=== PATIENT | female | born 2000 | race Caucasian/White ===

== ENCOUNTER 2023-04-26 17:00 | Outpatient (RCR) | payer OTHER, SELFPAY | END 2023-06-04 14:31 | disposition home or self-care (01) | LOC: PT 17:00 | PROVIDERS: Visit Provider Obstetrics & Gynecology | DX: M54.32 Sciatica, left side (principal) | CPT/HCPCS: 97110; 97140; 97163 ==

== ENCOUNTER 2023-06-09 20:42 | Emergency (ER) | payer OTHER, SELFPAY ==
[2023-06-09 20:44] VITALS: BP 137/74; PULSE 89; RESP 19; TEMP 36.9; O2SAT 99; BMI 20.7
--- NOTE | 2023-06-09 21:00 | XR_ITS ---
PROCEDURE INFORMATION: Exam: XR Chest Exam date and time: 06/09/2023 9:38 PM Age: 23 years old Clinical indication: Dyspnea TECHNIQUE: Imaging protocol: Radiologic exam of the chest. Views: 1 view. COMPARISON: No relevant prior studies available. FINDINGS: Lungs: Unremarkable. No consolidation. Pleural spaces: Unremarkable. No pleural effusion. No pneumothorax. Heart/Mediastinum: Unremarkable. No cardiomegaly. Bones/joints: Unremarkable. IMPRESSION: No acute findings.
--- NOTE | 2023-06-09 21:03 | HMH.EDGENADL ---
Discharge Plan Disposition Patient Disposition: Home, Self-Care Prescriptions Prescriptions: No Action ibuprofen 600 mg tablet 600 mg PO Q8H oxycodone 5 mg tablet 5 mg PO Q6H PRN (Reason: Pain, Moderate) enoxaparin 40 mg/0.4 mL syringe 40 mg SQ DIRECTED Referrals Follow up/Referrals: Kwasi Santillan MD [Staff Physician] - See instructions Jeison Pepe MD [Primary Care Provider] - See instructions Activity Restrictions/Add. Instructions Additional Instructions/Restrictions: There is no evidence of a pulmonary embolism or any other acute cardiopulmonary emergency however your BNP was significantly elevated and for that reason please follow-up closely with cardiology to have an outpatient echo done to rule out cardiomyopathy. The bedside echo that I performed did not show any evidence of any systolic dysfunction but she need a more comprehensive evaluation of the structure and function of your heart to effectively rule this out. Please return with any worsening shortness of breath or other concerns. Clinical Impressions Clinical Impression: Chest pain Discharge ED Provider: Leti Kowalski General Adult HPI General Chief complaint: Upper Respiratory Infection Stated complaint: cough, OLIVAS, body aches Time Seen by Provider: 06/09/23 20:50 Mode of Arrival: Wheelchair Source of Information: Patient Limitations: No Limitations Description of Symptoms (Recalled from ER Triage Doc. by RN): Patient had section 06/07/23 and was discharged from the hospital this afternoon. Patient reports that she began having a cough on her way home and general malaise that has progressively gotten worse. Patient reports being on lovenox throughout her and currently for sluggish flow . Denies fevers at home. History of Present Illness HPI narrative: Patient is a 23-year-old G3, P3 2 days with a history of preeclampsia presenting to the emergency department with chest discomfort and cough. States that she was feeling fine upon discharge and developed a sudden cough and some discomfort in her chest. She is chronically on Lovenox for the last 2 years for sluggish flow of her lower extremity was never officially diagnosed with a DVT or pulmonary embolism but remained on Lovenox. She stopped Lovenox for 3 days for her but really assumed this prior to being discharged from the hospital. She denies any significant headaches any visual disturbances she does not have any significant shortness of breath she has had no bleeding complications since her surgery. She denies any lower extremity asymmetric swelling no hemoptysis no fevers or chills. She states she is most concerned about her preeclampsia in the past. Related Data Home Medications Medication Instructions Recorded Confirmed enoxaparin 40 mg/0.4 mL 40 mg SQ DIRECTED 06/09/23 06/09/23 subcutaneous syringe ibuprofen 600 mg tablet 600 mg PO Q8H 06/09/23 06/09/23 oxycodone 5 mg tablet 5 mg PO Q6H PRN Pain, Moderate 06/09/23 06/09/23 Allergies Allergy/AdvReac Type Severity Reaction Status Date / Time Penicillins Allergy Intermediate Rash Verified [facility]09[facility]23 21[facility] Disclaimer: The information contained in this section may have been updated after the patient was seen, as this information can be updated by other users. Surgical History (Updated 06/09/23 @ 20:55 by Senait Cuevas RN) Previous section Social History Smoking Status: Never smoker alcohol intake: never current occupational status: other Travel in the last 8 weeks: None ROS Obtained: Yes All systems reviewed & no additional complaints except as documented Physical Exam General General appearance: alert Respiratory Respiratory exam: Present normal lung sounds bilaterally; Absent respiratory distress Cardiovascular Cardiovascular exam: Present tachycardia Abdominal Exam Abdominal exam: Present soft; Absent diste
--- NOTE | 2023-06-09 21:10 | ECG_ITS ---
APPROVED REPORT Exam: Resting ECG HR:82 bpm ECG Measurements Heart Rate 82 AXES DE 149 P 59 QRSd 89 QRS 60 QT 341 T 46 QTc 380 Conclusion SINUS RHYTHM LOW QRS VOLTAGE IN PRECORDIAL LEADS Incomplete RBBB BORDERLINE ECG UNCONFIRMED REPORT Electronically signed by : Jeison Pepe MD 06/10/2023 07:33:34
[2023-06-09 21:25] LABS: Coronavirus 19, PCR Not Detected (NotDetected); Influenza A, PCR Not Detected (NotDetected); Influenza B, PCR Not Detected (NotDetected)
[2023-06-09 21:34] LABS: Alanine Aminotransferase 16 U/L (12-78); Albumin/Globulin Ratio 0.9 (1.1-1.8); Alkaline Phosphatase 169 U/L (38-126); Anion Gap 7.9 mEq/L (5-15); Aspartate Amino Transferase 30 U/L (14-36); Bilirubin,Total 0.3 mg/dl (0.2-1.3); Blood Urea Nitrogen 10 mg/dl (7-17); Calcium 8.7 mg/dl (8.4-10.2); Carbon Dioxide 25 mmol/L (22.0-30.0); Chloride 110 mmol/L (98-107); Creatinine Clearance Estimated 122 mL/min (50-200); Estimated Glomerular Filt Rate 124 ml/min (>60); GFR (African American) 150 ML/MIN (>60); Globulin 3.4 g/dL (1.3-3.2); Glucose 89 mg/dl (74-100); Potassium 3.9 mmoL/L (3.5-5.1); Sodium 139 mmol/L (136-145); Total Protein,Serum 6.4 g/dl (6.3-8.2)
[2023-06-09 21:35] LABS: Microscopic, Urine URINE MICROSCOPIC (MICROSCOPIC)
[2023-06-09 21:37] LABS: Basophils # 0.1 K/mm3 (0-0.2); Basophils % 0.4 % (0.1-2.0); Eosinophils # 0.2 K/mm3 (0.0-0.4); Eosinophils % 1.4 % (0.1-12.0); Hematocrit 36.7 % (37.0-47.0); Hemoglobin 11.6 g/dL (12.2-16.2); Lymphocytes # 2.5 K/mm3 (0.7-4.5); Lymphocytes % 14.8 % (10-50); Mean Corpuscular HGB Conc 31.6 g/dL (31.8-35.4); Mean Corpuscular Hemoglobin 28.5 pg (27.0-31.2); Mean Corpuscular Volume 89.9 fl (81-99); Monocytes # 0.7 K/mm3 (0.1-1.0); Neutrophils # 13.4 K/mm3 (1.8-7.8); Neutrophils % 79.5 % (37.0-80.0); Platelet Count 331 K/mm3 (142-424); Red Blood Count 4.08 M/mm3 (4.20-5.40); Red Cell Distribution Width 15.8 % (11.5-17.5); White Blood Count 16.9 K/mm3 (4.8-10.8)
[2023-06-09 21:37] LABS: Appearance,Urine CLEAR (Clear); Bilirubin,Urine Negative (Negative); Blood, Urine TRACE-I (Negative); Color,Urine YELLOW (Yellow); Glucose,Urine (UA) Negative (Negative); Ketones,Urine Negative (Negative); Leukocyte Esterase,Urine Negative (Negative); Nitrate,Urine Negative (Negative); PH,Urine 6.5 (5.0-8.5); Protein,Urine Negative (Negative); Specific Gravity, Urine 1.015 (1.005-1.030); Urobilinogen,Urine 0.2 EU/dl (0.2)
[2023-06-09 21:43] LABS: MANUAL DIFFERENTIAL MANUAL DIFFERENTIAL (MANUAL DIFF)
--- NOTE | 2023-06-09 21:45 | CT_ITS ---
PROCEDURE INFORMATION: Exam: CTA Chest With Contrast Exam date and time: 06/09/2023 10:05 PM Age: 23 years old Clinical indication: Dyspnea; Additional info: Cp, post , dimer elevated TECHNIQUE: Imaging protocol: Computed tomographic angiography of the chest with contrast. Exam focused on the arteries. 3D rendering (Not supervised by radiologist): MIP and/or 3D reconstructed images were created by the technologist. Radiation optimization: All CT scans at this facility use at least one of these dose optimization techniques: automated exposure control; mA and/or kV adjustment per patient size (includes targeted exams where dose is matched to clinical indication); or iterative reconstruction. Contrast material: ISOVUE; Contrast volume: 70 ml; Contrast route: INTRAVENOUS (IV); REPORTING DATA: Count of CT and Cardiac NM exams in prior 12 months: This patient has received 0 known CTs and 0 known cardiac nuclear medicine studies in the 12 months prior to the current study. COMPARISON: CR XR CHEST PORTABLE 06/09/2023 9:38 PM FINDINGS: Pulmonary arteries: The main pulmonary artery is normal in caliber. No pulmonary embolism. Aorta: Unremarkable. No aortic aneurysm. No aortic dissection. Lungs: Unremarkable. No consolidation. No masses. Pleural spaces: Unremarkable. No pneumothorax. No pleural effusion. Heart: Unremarkable. No cardiomegaly. No pericardial effusion. Lymph nodes: Unremarkable. No enlarged lymph nodes. Intraperitoneal space: Trace pneumoperitoneum seen along the anterior liver, correlate with history recent surgery such as delivery. Bones/joints: Unremarkable. No acute fracture. Soft tissues: Unremarkable. IMPRESSION: 1. The main pulmonary artery is normal in caliber. No pulmonary embolism. 2. Trace pneumoperitoneum seen along the anterior liver, correlate with history recent surgery such as delivery.
[2023-06-09 21:47] LABS: NT Pro Brain Natriuretic Pep. 1090 pg/mL (0-125)
[2023-06-09 21:48] LABS: Troponin I < 0.01 ng/ml (0.00-0.034)
[2023-06-09 21:56] LABS: Eosinophils % 1 % (0-3); Lymphocytes % 15 % (10-50); Monocytes % 3 % (2-9); Neutrophils % 80 % (42-76); Platelet Estimate Normal; RBC Morphology Normal; Total Cells Counted 100
[2023-06-09 21:58] LABS: RBC,Urine Occasional #/hpf (0-3); Squamous Epithelial Cell,Urine Occasional #/hpf (0-5)
--- NOTE | 2023-06-09 22:15 | PC.NURSE ---
Provider at bedside with ultrasound.
[2023-06-09 22:40] VITALS: BP 122/74; PULSE 83; RESP 18; TEMP 36.7; O2SAT 98
== END 2023-06-09 22:41 | disposition home or self-care (01) ==
PROVIDERS: Emergency Provider Student in an Organized Health Care Education/Training Program; PCP Internal Medicine Adolescent Medicine
DX: O90.89 Other complications of the puerperium, not elsewhere classified (principal); R07.89 Other chest pain; I45.19 Other right bundle-branch block; R79.89 Other specified abnormal findings of blood chemistry; R05.9 Cough, unspecified
CPT/HCPCS: 71045; 71275; 80053; 81001; 83880; 84484; 85007; 85025; 85378; 87636; 93005; 96361; 96374; 99285; J0131; Q9967

== ENCOUNTER 2023-12-06 08:52 | Emergency (ER) | payer OTHER, SELFPAY ==
[2023-12-06 09:07] VITALS: BP 117/73; PULSE 144; RESP 18; TEMP 36.9; O2SAT 96; BMI 17.5
--- NOTE | 2023-12-06 09:13 | ED_ITS ---
Discharge Plan Disposition Patient Disposition: Home, Self-Care Prescriptions Prescriptions: New ondansetron 4 mg tablet,disintegrating 4 mg PO Q8H PRN (Reason: nausea and vomiting) 4 Days Qty: 12 0RF No Action ibuprofen 600 mg tablet 600 mg PO Q8H oxycodone 5 mg tablet 5 mg PO Q6H PRN (Reason: Pain, Moderate) enoxaparin 40 mg/0.4 mL syringe 40 mg SQ DIRECTED Referrals Follow up/Referrals: Provider,Referral, MD [Primary Care Provider] - See instructions Activity Restrictions/Add. Instructions Additional Instructions/Restrictions: At this time it was felt you are safe to be discharged home. If new or worsening symptoms please do not hesitate to return the emergency department. If symptoms persist please follow-up with your family doctor as you are able. Please take medication as prescribed. Clinical Impressions Clinical Impression: Influenza A, Vomiting Discharge ED Provider: Maulik Marshall General Adult HPI General Chief complaint: Nausea/Vomiting/Diarrhea Stated complaint: vomiting, body aches, fever Time Seen by Provider: 12/06/23 09:00 History of Present Illness HPI narrative: Patient is a 23-year-old female with no pertinent past medical history presents emergency department for evaluation of symptoms related to influenza A. Patient was diagnosed with influenza A on Sunday. Since then she has had vomiting, body aches, back pain. Due to limited ability to tolerate p.o. she presents here for continued evaluation. No other acute complaints at this time. Related Data Home Medications Medication Instructions Recorded Confirmed enoxaparin 40 mg/0.4 mL 40 mg SQ DIRECTED 06/09/23 06/09/23 subcutaneous syringe ibuprofen 600 mg tablet 600 mg PO Q8H 06/09/23 06/09/23 oxycodone 5 mg tablet 5 mg PO Q6H PRN Pain, Moderate 06/09/23 06/09/23 Previous Rx's Medication Instructions Recorded ondansetron 4 mg disintegrating 4 mg PO Q8H PRN nausea and 12/06/23 tablet vomiting 4 days #12 tabs Allergies Allergy/AdvReac Type Severity Reaction Status Date / Time Penicillins Allergy Intermediate Rash Verified 12/06/23 09:17 [facility] Disclaimer: The information contained in this section may have been updated after the patient was seen, as this information can be updated by other users. Surgical History (Updated 06/09/23 @ 20:55 by Senait Cuevas RN) Previous section Social History (Updated 06/09/23 @ 22:35 by Leti Kowalski MD) Smoking Status: Never smoker alcohol intake: never current occupational status: other Travel in the last 8 weeks: None ROS Obtained: Yes Systems reviewed as appropriate & no additional complaints except as documented Physical Exam General General appearance: alert and in no apparent distress Head Head exam: atraumatic and normocephalic Eye Eye exam: Present PERRL and EOMI ENT ENT exam: Present mucous membranes moist Neck Neck exam: Present normal inspection Chest Chest inspection: Present normal inspection and symmetric chest wall rise Respiratory Respiratory exam: Present normal lung sounds bilaterally; Absent respiratory distress Cardiovascular Cardiovascular exam: Present normal rhythm and tachycardia Abdominal Exam Abdominal exam: Present soft and tenderness (Epigastric) Extremities Exam Extremities exam: Present normal inspection Neurological Exam Neurological exam: Present alert Psychiatric Psychiatric exam: Present normal affect Skin Skin exam: Present warm and dry Medical Decision Making Eddie Inquiry Pt receiving controlled substance: No Vital Signs: 12/06/23 09:07 12/06/23 09:34 Temperature 98.5 F Temperature Source Oral Pulse Rate 112 H Pulse Rate [Left Radial] 144 H Respiratory Rate 18 Blood Pressure [Right Arm] 117/73 Blood Pressure Mean [Right Arm] 87 Blood Pressure Source [Right Arm] Automatic Cuff Blood Pressure Position [Right Arm] Sitting 02 Sat by Pulse Oximetry 96 Oxygen Delivery Method Room Air Lab Data Lab Results 12/06/23 09:18: WBC 8.4, RBC 4.55, Hgb 13.7, Hct 42.3, MCV 92.9, MCH 30.1, MCHC 32.4, RDW 12.1, Plt Count 322, MPV 7.9, Neut % (Auto) 85.2 H, Lymph % (Auto) 7.7 L, [place] % (Auto) 4.2, Eos % (Auto) 1.2, Baso % (Auto) 1.7, Neut # (Auto) 7.2, L ymph # (Auto) 0.6 L, [place] # (Auto) 0.4, Eos # (Auto) 0.1, Baso # (Auto) 0.1, Sodium 139, Potassium 3.6, Chloride 107, Carbon Dioxide 26, Anion Gap 9.6, BUN 13, Creatinine 0.60, Estimated Creat Clear 100, Estimated GFR 124, Est GFR ( Amer) 150, Glucose 104 H, Calcium 8.7, Total Bilirubin 1.6 H, AST 35, ALT 47, Alkaline Phosphatase 78, Total Protein 6.9, Albumin 3.9, Globulin 3.0, Albumin/Globulin Ratio 1.3, Lipase 47, Serum HCG, Qual Negative 12/06/23 09:18 12/06/23 09:18 Orders (Tests/Meds): ED MEDICATIONS Generic Name Dose Route Start Last Admin Trade Name Freq PRN Reason Stop Dose Admin Lactated Ringer's 1,000 mls @ 999 mls/hr 12/06/23 09:12 12/06/23 09:24 Lactated Ringer's 1000 Ml Bag IV 12/06/23 10:12 999 mls/hr .Q1H1M ONE Administration Discontinued Medications Generic Name Dose Route Start Last Admin Trade Name Freq PRN Reason Stop Dose Admin Acetaminophen 1,000 mg 12/06/23 09:20 12/06/23 09:24 Acetaminophen 500mg Tab PO 12/06/23 09:21 1,000 mg ONCE ONE Administration Ketorolac Tromethamine 30 mg 12/06/23 09:20 12/06/23 09:24 Ketorolac 30mg/Ml Vial IV 12/06/23 09:21 30 mg ONCE ONE Administration Ondansetron HCl 4 mg 12/06/23 09:12 12/06/23 09:25 Ondansetron 4mg/2ml Vial IV 12/06/23 09:13 4 mg ONCE ONE Administration ORDERS Category Date Time Status CBC w/Auto Diff [Complete Blood Count Auto Diff] Stat Lab 12/06/23 09:18 Results CMP [Comprehensive Metabolic Panel] Stat Lab 12/06/23 09:18 Completed HCG Qualitative, Serum Stat Lab 12/06/23 09:18 Completed Lipase Stat Lab 12/06/23 09:18 Completed EKG Request [ECG Request] Stat Y 12/06/23 09:27 Ordered ECG Data Tracing #1: Independently interpreted by me, rate is 112, rhythm is regular, axis normal, no ST elevation in anatomical contiguous leads, QTc 391. Medical Decision Narrative: In summary patient is a 23-year-old female past medical history described above presents emergency department for evaluation of myalgias, vomiting in the setting of influenza A. Patient is hemodynamically stable nontoxic-appearing upon arrival, tachycardic. I suspect that tachycardia secondary to viremia however hypovolemia in the setting of vomiting with RADHA cannot be ruled out. Workup will be conducted with hematologic labs. Patient does have some epigastric tenderness, no right upper quadrant rebound or guarding. Workup with imaging was considered but will be deferred. Initial inventions include Zofran, crystalloid bolus. Workup reviewed by me, hematologic labs are nonactionable, hCG negative, no critical electrolyte abnormalities, lipase normal. Per repeat evaluation patient underwent p.o. trial was successful, resolving tachycardia. Given this patient is appropriate for discharge at this time will be discharged with a course of Zofran and was given return precautions. Critical Care Critical Care Time Critical Care Time: No
[2023-12-06] MEDS: KETOROLAC 30MG/ML VIAL 30 MG IV (09:24)
[2023-12-06] MEDS: LACTATED RINGERS 1000ML 1,000 ML 999 ML IV (09:24)
[2023-12-06] MEDS: ACETAMINOPHEN 500MG TAB 1000 MG PO (09:24)
[2023-12-06] MEDS: ONDANSETRON 4MG/2ML VIAL 4 MG IV (09:25)
[2023-12-06 09:30] LABS: Basophils # 0.1 K/mm3 (0-0.2); Basophils % 1.7 % (0.1-2.0); Eosinophils # 0.1 K/mm3 (0.0-0.4); Eosinophils % 1.2 % (0.1-12.0); Hematocrit 42.3 % (37.0-47.0); Hemoglobin 13.7 g/dL (12.2-16.2); Lymphocytes # 0.6 K/mm3 (0.7-4.5); Lymphocytes % 7.7 % (10-50); Mean Corpuscular HGB Conc 32.4 g/dL (31.8-35.4); Mean Corpuscular Hemoglobin 30.1 pg (27.0-31.2); Mean Corpuscular Volume 92.9 fl (81-99); Mean Platelet Volume 7.9 fl (7.4-10.4); Monocytes # 0.4 K/mm3 (0.1-1.0); Monocytes % 4.2 % (1.7-9.3); Neutrophils # 7.2 K/mm3 (1.8-7.8); Neutrophils % 85.2 % (37.0-80.0); Platelet Count 322 K/mm3 (142-424); Red Blood Count 4.55 M/mm3 (4.20-5.40); Red Cell Distribution Width 12.1 % (11.5-17.5); White Blood Count 8.4 K/mm3 (4.8-10.8)
[2023-12-06 09:31] LABS: MANUAL DIFFERENTIAL MANUAL DIFFERENTIAL (MANUAL DIFF)
--- NOTE | 2023-12-06 09:31 | ECG_ITS ---
APPROVED REPORT Exam: Resting ECG HR:112 bpm ECG Measurements Heart Rate 112 AXES VA 128 P 64 QRSd 85 QRS 72 QT 325 T 76 QTc 391 Conclusion SINUS TACHYCARDIA ABNORMAL RHYTHM ECG Electronically signed by : DAVID MOSER, 12/06/2023 15:14:17
[2023-12-06 09:32] LABS: Chloride 107 mmol/L (98-107); Potassium 3.6 mmoL/L (3.5-5.1); Sodium 139 mmol/L (136-145)
[2023-12-06 09:34] VITALS: PULSE 112
[2023-12-06 09:34] LABS: Blood Urea Nitrogen 13 mg/dl (7-17); Creatinine Clearance Estimated 100 mL/min (50-200); Estimated Glomerular Filt Rate 124 ml/min (>60); GFR (African American) 150 ML/MIN (>60)
[2023-12-06 09:35] LABS: Alanine Aminotransferase 47 U/L (12-78); Albumin Level 3.9 g/dl (3.5-5.0); Albumin/Globulin Ratio 1.3 (1.1-1.8); Alkaline Phosphatase 78 U/L (38-126); Anion Gap 9.6 mEq/L (5-15); Aspartate Amino Transferase 35 U/L (14-36); Bilirubin,Total 1.6 mg/dl (0.2-1.3); Calcium 8.7 mg/dl (8.4-10.2); Carbon Dioxide 26 mmol/L (22.0-30.0); Glucose 104 mg/dl (74-100); Lipase 47 U/L (23-300); Total Protein,Serum 6.9 g/dl (6.3-8.2)
[2023-12-06 09:42] LABS: HCG Qualitative, Serum Negative (Negative)
[2023-12-06 10:19] VITALS: BP 97/53; PULSE 94; RESP 16; TEMP 36.8; O2SAT 98
[2023-12-06 10:46] LABS: Lymphocytes % 10 % (10-50); Monocytes % 5 % (2-9); Neutrophils % 79 % (42-76); Total Cells Counted 100
[2023-12-06 10:47] LABS: Platelet Estimate Normal; RBC Morphology Normal
== END 2023-12-06 10:21 | disposition home or self-care (01) ==
PROVIDERS: Emergency Provider Emergency Medicine
DX: J10.1 Influenza due to other identified influenza virus with other respiratory manifestations (principal); R00.0 Tachycardia, unspecified; R11.0 Nausea
CPT/HCPCS: 80053; 83690; 84703; 85007; 85025; 93005; 96361; 96374; 96375; 99284; J2405

== ENCOUNTER 2024-01-01 10:58 | Outpatient (CLI) | payer OTHER, SELFPAY ==
[2024-01-01 11:29] LABS: Basophils # 0.1 K/mm3 (0-0.2); Basophils % 1.3 % (0.1-2.0); Eosinophils # 0.1 K/mm3 (0.0-0.4); Eosinophils % 1.8 % (0.1-12.0); Hematocrit 40.4 % (37.0-47.0); Hemoglobin 12.9 g/dL (12.2-16.2); Lymphocytes # 2.7 K/mm3 (0.7-4.5); Lymphocytes % 42.1 % (10-50); Mean Corpuscular HGB Conc 31.8 g/dL (31.8-35.4); Mean Corpuscular Hemoglobin 29.7 pg (27.0-31.2); Mean Corpuscular Volume 93.4 fl (81-99); Mean Platelet Volume 8.3 fl (7.4-10.4); Monocytes # 0.3 K/mm3 (0.1-1.0); Monocytes % 4.3 % (1.7-9.3); Neutrophils # 3.2 K/mm3 (1.8-7.8); Neutrophils % 50.5 % (37.0-80.0); Platelet Count 359 K/mm3 (142-424); Red Blood Count 4.33 M/mm3 (4.20-5.40); Red Cell Distribution Width 12.4 % (11.5-17.5); White Blood Count 6.3 K/mm3 (4.8-10.8)
[2024-01-01 12:30] LABS: Alanine Aminotransferase 26 U/L (12-78); Albumin Level 4.2 g/dl (3.5-5.0); Alkaline Phosphatase 66 U/L (38-126); Anion Gap 9.4 mEq/L (5-15); Aspartate Amino Transferase 30 U/L (14-36); Bilirubin,Indirect 0.9 mg/dL (0.0-0.9); Bilirubin,Total 0.9 mg/dl (0.2-1.3); Bilirubin,Unconjugated 0.9 mg/dL (0.0-1.1); Blood Urea Nitrogen 11 mg/dl (7-17); Calcium 9.3 mg/dl (8.4-10.2); Carbon Dioxide 27 mmol/L (22.0-30.0); Chloride 108 mmol/L (98-107); Chol/HDL Ratio 2.9 (1-3.5); Cholesterol 197 mg/dl (140-200); Estimated Glomerular Filt Rate 124 ml/min (>60); GFR (African American) 150 ML/MIN (>60); Glucose 86 mg/dl (74-100); HDL Cholesterol 67 mg/dl (40-60); Potassium 4.4 mmoL/L (3.5-5.1); Sodium 140 mmol/L (136-145); Total Protein,Serum 6.8 g/dl (6.3-8.2); Triglycerides 86 mg/dl (30-150); VLDL Cholesterol 17 mg/dL (0-40)
[2024-01-01 12:41] LABS: Direct LDL Cholesterol 100.38 mg/dL (100-129)
[2024-01-01 13:04] LABS: Free Thyroxine Index 1.4 ug/dL (5.93-13.13); T4 (Thyroxine) 4.1 ug/dl (5.53-11.0); Triiodothryronine (T3) Uptake 33 % (23.5-40.5)
[2024-01-01 13:18] LABS: Thyroid Stimulating Hormone 0.58 uIU/mL (0.465-4.68)
== END 2024-01-01 23:59 | disposition home or self-care (01) ==
LOC: LAB 10:59
PROVIDERS: PCP Nurse Practitioner Family; Visit Provider Physician Assistant
DX: R07.9 Chest pain, unspecified (principal); R00.0 Tachycardia, unspecified; R00.2 Palpitations; Z87.891 Personal history of nicotine dependence
CPT/HCPCS: 36415; 80048; 80061; 80076; 84436; 84443; 84479; 85025; 93270

== ENCOUNTER 2024-01-24 09:11 | Outpatient (CLI) | payer OTHER, SELFPAY ==
--- NOTE | 2024-01-24 09:18 | US_ITS ---
FINAL REPORT TECHNIQUE: Ultrasound images of the abdomen were obtained. CLINICAL HISTORY: EPIGASTRIC PAIN gallbladder appears within normal limits COMPARISON: None FINDINGS: ABDOMINAL ULTRASOUND COMPLETE: The liver is normal in size and echogenicity without focal abnormality. There is a small amount of sludge in the dependent portion of the gallbladder. The common duct is normal. The right kidney measures 7.9 cm in length and is normal in echogenicity without hydronephrosis. The left kidney measures 9.7 cm in length and is normal in echogenicity without hydronephrosis. The spleen is unremarkable. The pancreas is obscured by overlying bowel gas. The visualized portions of the aorta and the IVC are normal. The vena cava is unremarkable. There is no evidence of hernia. IMPRESSION: Small amount of sludge in the gallbladder. No evidence of hernia. Reviewed, Interpreted and Dictated by Thee Bush MD Transcribed by Lashell Hernandez Authenticated and [facility]
== END 2024-01-24 23:59 | disposition home or self-care (01) ==
LOC: RAD 09:12
PROVIDERS: PCP Nurse Practitioner; Visit Provider Nurse Practitioner
DX: R10.13 Epigastric pain (principal)
CPT/HCPCS: 76700

== ENCOUNTER 2024-02-08 13:53 | Outpatient (CLI) | payer OTHER, SELFPAY ==
--- NOTE | 2024-02-08 13:57 | US_ITS ---
FINAL REPORT CLINICAL HISTORY: NODULE ON NECK FINDINGS: Limited sonographic images of the back of the right neck were obtained. There is a 13 mm ovoid, hypoechoic nodule at the area of interest in the posterior neck, may represent a borderline lymph node or other soft tissue nodule. IMPRESSION: Hypoechoic nodule at the area of interest, may represent borderline lymph node or other soft tissue nodule. Reviewed, Interpreted and Dictated by Baldo López III, MD Transcribed by Dian Jennings Authenticated and [facility]
== END 2024-02-08 23:59 | disposition home or self-care (01) ==
LOC: RAD 13:54
PROVIDERS: PCP Nurse Practitioner; Visit Provider Nurse Practitioner
DX: R22.1 Localized swelling, mass and lump, neck (principal); Z87.891 Personal history of nicotine dependence
CPT/HCPCS: 76536

== ENCOUNTER 2024-05-12 08:54 | Outpatient (CLI) | payer OTHER, SELFPAY ==
--- NOTE | 2024-05-12 09:21 | CT_ITS ---
APPROVED REPORT Community Health Director: CLINICAL INDICATION Chest Pain TECHNIQUE Image Acquisition: A 128 slice MDCT scanner ([employer] Talenda View) was used for data acquisition. A noncontrast coronary calcium scan was performed. A CT attenuation threshold of 130 Hounsfield units (HU) was used for the detection of calcium in contiguous voxels of 1 sq mm in area to be counted as individual lesions. Bolus tracking in the ascending aorta with a threshold of 180 HU was performed. Immediately afterwards, ECG synchronized cardiac CT was then performed from the cardiac base to apex using retrospective gating with ECG tube current modulation. A total of 85 mL of Isovue 370 mg/mL contrast medium was administered at 5 mL/sec followed by a saline flush using a biphasic injection protocol. A tube voltage of 120 KVp was used. The average heart rate at the time of acquisition was 66 bpm and regular. The patient received no medications prior to the CT scan. Image Reconstruction Transaxial images were reconstructed at 0.67 mm slide thickness. Data was reviewed interactively on an advanced workstation capable of 2 and 3-dimensional displays in all conventional reconstruction formats, including multiplanar reformations, maximum intensity projections, curved multiplanar reformations, and volume rendered reconstructions. When applicable, selected routine images describing the relevant coronary anatomy and pathology were saved and sent to PACS. Complications None Technical Quality Overall image quality was good. Coronary artery opacification was adequate. Total DLP (Dose-Length Product) is 1157.7 mGy-cm. The reported value represents the total of one or more individual components during the CT acquisition of this date and at this time, and as such, the same value may appear in more than one CT report depending on the interpreting/reporting physicians. COMPARISON None FINDINGS CT Coronary Calcium Scoring LMA (Left Main Artery) = 0 LAD (Left Anterior Descending) = 0 LCX (Left Coronary Circumflex) = 0 RCA (Right Coronary Artery) = 0 Total Calcium Score = 0 using the AJ-130 method. The interpretation of the calcium heart score is based on the following continuum*: 0 = no calcified plaque detected (risk of coronary artery disease is very low ??? less than 5%) 1-10 = calcium detected in extremely minimal levels (risk of coronary diseases is still low ??? less than 10%) 11-100 = mild levels of plaque detected with certainty (mild or minimal narrowing of heart arteries is likely) 101-400 = definite,at least moderate levels of plaque detected (relatively high risk of a heart attack within 3-5 years) >401-999 = extensive levels of plaque detected (high risk of heart attack, high levels of vascular disease are present, high likelihood of at least one significant coronary narrowing) *The calcium heart score quantifies the burden of coronary calcification/plaque in the coronary arteries. The calcium heart score is not able to evaluate the presence or burden of non-calcified (i.e. soft) plaque. There is no identifiable calcification in the aortic valve, mitral annulus or mitral valve, pericardium, or myocardium. Coronary CT Angiography The coronary arterial system is right dominant. Quantitative Stenosis Grading: Left Main (LM): The left main originates normally from the left sinus of Valsalva. The LM trifurcates into the left anterior descending artery, ramus intermedius, and left circumflex artery. The LM is patent with no evidence of atherosclerosis. Left Anterior Descending (LAD) and Diagonal Branches: The LAD gives off 2 diagonal branch(es). The LAD and its branches are patent with no evidence of atherosclerosis. There is no evidence of LAD-myocardial bridge. Ramus-intermedius (RI): The RI is patent. Left Circumflex (LCX) and Obtuse Marginals (OM): The LCX gives off 1 Obtuse Marginal (OM) branch(es). The LCX and its branches are patent with no evidence of atherosclerosis. Right Coronary Artery (RCA): The RCA originates normally from the right sinus of Valsalva. The RCA gives off a posterior descending artery (PDA) and posterolateral (PL) branches. The RCA and its branches are patent with no evidence of atherosclerosis. Non-Coronary Cardiac Findings: Analysis of the left ventricular (LV) structure and function was performed after 3-D reconstruction of the LV from axial images, with user-corrected automatic contouring for assessment of LV volumes and user-defined reconstruction from oblique planes for measurement of 3-D cardiac structure and function. -The left ventricle systolic function is _ -There is no left atrial appendage filling defect. Two right pulmonary veins and two left pulmonary veins drain normally into the left atrium. -No pericardial thickening or calcification. -Central and branch pulmonary arteries in the [id number] are unremarkable. -Thoracic aorta within the visualized thoracic aortic-branches in the [id number] is unremarkable. Extracardiac Structures No significant extra-cardiac findings. Note, however, that this study is focused on the cardiac findings. IMPRESSION -No coronary calcification with an Agatston score = 0 using the AJ-130 method. -No evidence of significant flow-limiting atherosclerosis of the coronary arteries. -No evidence of coronary anomalies or myocardial bridges. -CAD-RADS 0. Management recommendations per ACC/AHA guidelines*, as clinically appropriate. *Recommendations: CAD RADS 0: Reassurance. Consider non-atherosclerotic causes of chest pain. CAD RADS 1: Consider non-atherosclerotic causes of chest pain. Consider preventive therapy and risk factor modification. CAD RADS 2: Consider non-atherosclerotic causes of chest pain. Consider preventive therapy and risk factor modification, particularly for patients with nonobstructive plaque in multiple segments. CAD RADS 3: Consider further functional testing. Consider symptom-guided anti-ischemic and preventive pharmacotherapy as well as risk factor modification per published guideline statements. CAD RADS 4A: Consider further functional testing or invasive coronary angiography with revascularization per published guideline statements. Consider symptom-guided anti-ischemic and preventive pharmacotherapy as well as risk factor modification per published guideline statements. CAD RADS 4B: Invasive coronary angiography recommended with revascularization per published guideline statements. Consider symptom-guided anti-ischemic and preventive pharmacotherapy as well as risk factor modification per published guideline statements. CAD RADS 5: Consider invasive angiography and/or viability assessment with revascularization per published guideline statements. Consider symptom-guided anti-ischemic and preventive pharmacotherapy as well as risk factor modification per published guideline statements. CRITICAL RESULT None COMMUNICATION Per this written report The coronary and cardiac findings of this CCTA were reviewed, reported, and signed by Jovani Aly MD (Link Trainer Maintenance Worker) Conclusion Electronically signed by : Leisa Aly MD 05/13/2024 12:07:18
[2024-05-12 09:29] VITALS: BMI 16.0
[2024-05-12 09:34] VITALS: BP 110/60; PULSE 57; RESP 18; TEMP 36.5; O2SAT 100
[2024-05-12 09:59] LABS: Chloride 107 mmol/L (98-107); Potassium 3.8 mmoL/L (3.5-5.1); Sodium 138 mmol/L (136-145)
[2024-05-12 10:02] LABS: Anion Gap 6.8 mEq/L (5-15); Blood Urea Nitrogen 6 mg/dl (7-17); Calcium 8.4 mg/dl (8.4-10.2); Carbon Dioxide 28 mmol/L (22.0-30.0); Creatinine Clearance Estimated 78 mL/min (50-200); Estimated Glomerular Filt Rate 103 ml/min (>60); GFR (African American) 124 ML/MIN (>60); Glucose 82 mg/dl (74-100)
[2024-05-12 10:07] LABS: Urine Pregnancy, HCG Qual. Negative (Negative)
[2024-05-12 10:20] VITALS: BP 107/71; PULSE 59; RESP 18; O2SAT 100
[2024-05-12 10:23] VITALS: BP 109/64; PULSE 58; RESP 16; O2SAT 100
[2024-05-12 10:26] VITALS: BP 88/44; PULSE 51; RESP 16; O2SAT 100
[2024-05-12 10:29] VITALS: BP 84/46; PULSE 62; RESP 18; O2SAT 100
[2024-05-12] MEDS: 0.9 % SODIUM CHLORIDE 50 ML VIAL IV (10:37)
[2024-05-12] MEDS: SODIUM CHLORIDE 0.9% 10ML SYR (RAD ONLY) 10 ML IV (10:37)
[2024-05-12] MEDS: IOPAMIDOL-370 (76%);100ML BOTTLE 85 ML IV (10:37)
[2024-05-12 10:40] VITALS: BP 120/61; PULSE 67; RESP 16; O2SAT 100
== END 2024-05-12 10:54 | disposition home or self-care (01) ==
PROVIDERS: PCP Nurse Practitioner; Visit Provider Physician Assistant
DX: R06.00 Dyspnea, unspecified (principal); R07.9 Chest pain, unspecified; R00.0 Tachycardia, unspecified
CPT/HCPCS: 75574; 80048; 81025; Q9967

== ENCOUNTER 2024-09-14 16:03 | Emergency (ER) | payer OTHER, SELFPAY ==
[2024-09-14 16:04] VITALS: BP 106/51; PULSE 98; RESP 16; TEMP 37; O2SAT 100; BMI 16.2
--- NOTE | 2024-09-14 16:05 | ED_ITS ---
<Statement entered by Nellie Malone DO - 09/14/24 18:42> I was consulted by the BEAR, and we discussed the complexity of the problems being addressed. I approved the treatment and management plan for this patient's care in the emergency department, thus performing a substantive portion of the medical decision making. Nellie Malone DO Discharge Plan Disposition Patient Disposition: Home, Self-Care Condition: Good Prescriptions Prescriptions: New ondansetron 4 mg tablet,disintegrating 4 mg PO Q6H PRN (Reason: nausea and vomiting) Qty: 10 0RF No Action propranolol 40 mg tablet 40 mg PO BID Qty: 60 3RF ergocalciferol (vitamin D2) [Vitamin D2] 1,250 mcg (50,000 unit) capsule 1,250 mcg PO DAILY Patient Comments: TAKE ONE CAPSULE BY MOUTH ONCE WEEKLY Referrals Follow up/Referrals: Jennifer Hoskins APRN [Primary Care Provider] - See instructions Activity Restrictions/Add. Instructions Additional Instructions/Restrictions: Reintroduce food with the bananas rice applesauce toast diet once you are able to tolerate that you may advance as tolerated. I have sent nausea medicine into your pharmacy. Follow-up with your PCP if your symptoms persist worsen or change or return to the ER as needed. Clinical Impressions Clinical Impression: Nausea & vomiting Instructions Patient Instructions: DI for Diarrhea and Traveler's Diarrhea -- Adult, DI for Diarrhea and Traveler's Diarrhea -- Child, DI for Nausea -- Adult, DI for Nausea -- Child Print Language Print Language: Moldovan Discharge ED Provider: Nellie Malone General Adult HPI General Chief complaint: Nausea/Vomiting/Diarrhea Stated complaint: vomiting, unable to eat, back pain Time Seen by Provider: 09/14/24 16:05 History of Present Illness HPI narrative: Patient presents for evaluation of nausea and vomiting. Patient states that she and her son have had 3 days of nausea vomiting and he has not had diarrhea but she has. She states that they have been unable to tolerate any oral intake for 3 days. She states neither he nor she has urinated today. She denies any fever chills chest pain shortness of breath hemoptysis hematochezia melena hematemesis hematuria. She denies any abdominal pain. Related Data Home Medications ?Medication ?Instructions ?Recorded ?Confirmed ergocalciferol (vitamin D2) 1,250 1,250 mcg PO DAILY 02/21/24 06/04/24 mcg (50,000 unit) capsule (Vitamin D2) Previous Rx's ?Medication ?Instructions ?Recorded propranolol 40 mg tablet 40 mg PO BID #60 tabs 05/01/24 ondansetron 4 mg disintegrating 4 mg PO Q6H PRN nausea and 09/14/24 tablet vomiting #10 tabs Allergies Allergy/AdvReac Type Severity Reaction Status Date / Time Penicillins Allergy Intermediate Rash Verified 06/04/24 09:27 [facility] Disclaimer: The information contained in this section may have been updated after the patient was seen, as this information can be updated by other users. Medical History Dyspnea delivery delivered Surgical History Previous section Social History Smoking Status: Former smoker alcohol intake: never substance use type: denies use current occupational status: unemployed and other Travel in the last 8 weeks: None Have you lived/traveled outside US in past 30 days?: No Contact w/someone who lives/traveled outside US past 30 days?: No Exposure to someone with infectious disease in past 14 days?: No Do you have a fever (greater than 100.4 F or 38 C)?: No Have you tested positive for COVID-19: No Exposed to someone with COVID-19 in past 14 days?: No Do you have a sore throat?: No Do you have a cough?: No Do you have any weakness?: No Do you have any diarrhea?: No Are you experiencing any unusual bleeding?: No Do you have any muscle aches/pain?: Yes Do you have any abdominal pain?: No Are you experiencing loss of taste or smell?: No Other Medical History Have you received the Flu Vaccine for this season: No Have you received the Pneumonia Vaccine: No ROS Obtained: Yes Systems reviewed as appropriate & no additional complaints except as documented Physical Exam General General appearance: alert and in no apparent distress ENT ENT exam: Present normal exam, normal oropharynx and mucous membranes moist Respiratory Respiratory exam: Present normal lung sounds bilaterally Cardiovascular Cardiovascular exam: Present regular rate Neurological Exam Neurological exam: Present alert and oriented X3 Medical Decision Making Medical Records Medical records reviewed: Yes I reviewed the patient's medical records. Screening: Per USPSTF and CDC recommendations, given the prevalence of disease in our region, it is our hospital?s policy to screen for HIV and viral Hepatitis for all patients aged 18 and over and those with ongoing risk factors. Eddie Inquiry Pt receiving controlled substance: No Vital Signs: 09/14/24 16:04 09/14/24 17:33 Temperature 98.6 F 98.6 F Temperature Source Oral Oral Pulse Rate 78 Pulse Rate [Radial] 98 H Respiratory Rate 16 16 Blood Pressure 98/59 L Blood Pressure [Left Arm] 106/51 L Blood Pressure Mean [Left Arm] 69 Blood Pressure Source Automatic Cuff Blood Pressure Source [Left Arm] Automatic Cuff Blood Pressure Position [Left Arm] Sitting 02 Sat by Pulse Oximetry 100 Oxygen Delivery Method Room Air Room Air Lab Data Lab results reviewed: Yes I reviewed the patient's lab results. Lab Results 09/14/24 16:22: SARS-CoV-2 (PCR) Not detected, Influenza A Untype (PCR) Not detected, Influenza Type B (PCR) Not detected 09/14/24 16:25: WBC 7.1, RBC 4.11 L, Hgb 12.4, Hct 36.9 L, MCV 89.8, MCH 30.2, MCHC 33.6, RDW 11.8, Plt Count 294, MPV 9.9, Neut % (Auto) 69.8, Lymph % (Auto) 20.3, [place] % (Auto) 7.9, Eos % (Auto) 1.0, Baso % (Auto) 0.4, Neut # (Auto) 4.9, Lymph # (Auto) 1.4, [place] # (Auto) 0.6, Eos # (Auto) 0.1, Baso # (Auto) 0.0, S odium 134 L, Potassium 3.5, Chloride 105, Carbon Dioxide 23, Anion Gap 9.5, BUN 12, Creatinine 0.70, Estimated Creat Clear 79, Estimated GFR 103, Est GFR ( Amer) 124, Glucose 88, Calcium 8.8, Magnesium 1.7, Total Bilirubin 1.5 H, AST 26, ALT 20, Alkaline Phosphatase 68, Total Protein 7.1, Albumin 4.2, Globulin 2.9, Albumin/Globulin Ratio 1.4, HCV Ab KRIS w/Rflx PCR Qn Negative, HIV Ag/Ab Combo Qual Negative 09/14/24 16:25 09/14/24 16:25 Orders (Tests/Meds): ED MEDICATIONS Discontinued Medications Generic Name Dose Route Start Last Admin Trade Name Juancho PRN Reason Stop Dose Admin Sodium Chloride 1,000 mls @ 999 mls/hr 09/14/24 16:16 09/14/24 16:25 Sod Chlor 0.9% 1000ml Bag IV 09/14/24 17:16 999 mls/hr .Q1H1M ONE Administration Ondansetron HCl 4 mg 09/14/24 16:07 09/14/24 16:25 Ondansetron 4mg Odt SL 09/14/24 16:08 4 mg ONCE ONE Administration ORDERS Category Date Time Status CBC w/Auto Diff [Complete Blood Count Auto Diff] Stat Lab 09/14/24 16:25 Completed CMP [Comprehensive Metabolic Panel] Stat Lab 09/14/24 16:25 Completed HIV Combo Stat Lab 09/14/24 16:25 Completed Hepatitis C Ab Qual. W/ RFX Stat Lab 09/14/24 16:25 Completed Magnesium Stat Lab 09/14/24 16:25 Completed Rapid PCR Covid and Flu A/B Stat Lab 09/14/24 16:22 Completed Medical Decision Narrative: In summary patient is a 24-year-old female who presents to the emergency department for evaluation of nausea vomiting diarrhea. Patient is hemodynamically stable with a blood pressure of 106/51 heart rate of 98 respiratory rate 16 temperature is 98.6 with an O2 sat of 100% on room air upon arrival. Physical exam is remarkable for hyperactive bowel sounds but no abdominal tenderness, no rebound or guarding no rigidity, no shortness of breath no increased work of breathing. Patient in normal sinus rhythm on the bedside monitor. Differential diagnosis includes viral gastroenteritis versus other viral infection. Initial workup will be conducted with hematologic labs respiratory swabs. Urinalysis. Initial interventions include crystalloid bolus Zofran. Initial workup reviewed by me shows her hematologic labs are nonactionable including normal white count and normal electrolytes.. Upon repeat evaluation patient has had no nausea or vomiting while in the ER and has urinated since she been here and is tolerating oral intake.. Given this patient is appropriate for discharge with strict return precautions and prescription for Zofran sent to her pharmacy. Critical Care Critical Care Time Critical Care Time: No
--- NOTE | 2024-09-14 16:20 | PC.NURSE ---
PT TO BR BY SELF, DID NOT OBTAIN UA
[2024-09-14] MEDS: 0.9 % SODIUM CHLORIDE 1000ML 1,000 ML 999 ML IV (16:25)
[2024-09-14] MEDS: ONDANSETRON 4MG ODT 4 MG SL (16:25)
[2024-09-14 16:27] LABS: Coronavirus 19, PCR Not Detected (NotDetected); Influenza A, PCR Not Detected (NotDetected); Influenza B, PCR Not Detected (NotDetected)
[2024-09-14 16:56] LABS: Albumin Level 4.2 g/dl (3.5-5.0); Chloride 105 mmol/L (98-107); Potassium 3.5 mmoL/L (3.5-5.1); Sodium 134 mmol/L (136-145)
[2024-09-14 16:57] LABS: Basophils % 0.4 % (0.1-2.0); Eosinophils # 0.1 K/mm3 (0.0-0.4); Hematocrit 36.9 % (37.0-47.0); Hemoglobin 12.4 g/dL (12.2-16.2); Lymphocytes # 1.4 K/mm3 (0.7-4.5); Lymphocytes % 20.3 % (10-50); Mean Corpuscular HGB Conc 33.6 g/dL (31.8-35.4); Mean Corpuscular Hemoglobin 30.2 pg (27.0-31.2); Mean Corpuscular Volume 89.8 fl (81-99); Mean Platelet Volume 9.9 fl (7.4-10.4); Monocytes # 0.6 K/mm3 (0.1-1.0); Monocytes % 7.9 % (1.7-9.3); Neutrophils # 4.9 K/mm3 (1.8-7.8); Neutrophils % 69.8 % (37.0-80.0); Platelet Count 294 K/mm3 (142-424); Red Blood Count 4.11 M/mm3 (4.20-5.40); Red Cell Distribution Width 11.8 % (11.5-17.5); White Blood Count 7.1 K/mm3 (4.8-10.8)
[2024-09-14 16:58] LABS: Alanine Aminotransferase 20 U/L (12-78); Aspartate Amino Transferase 26 U/L (14-36); Blood Urea Nitrogen 12 mg/dl (7-17); Creatinine Clearance Estimated 79 mL/min (50-200); Estimated Glomerular Filt Rate 103 ml/min (>60); GFR (African American) 124 ML/MIN (>60)
[2024-09-14 16:59] LABS: Albumin/Globulin Ratio 1.4 (1.1-1.8); Alkaline Phosphatase 68 U/L (38-126); Bilirubin,Total 1.5 mg/dl (0.2-1.3); Calcium 8.8 mg/dl (8.4-10.2); Globulin 2.9 g/dL (1.3-3.2); Glucose 88 mg/dl (74-100); Magnesium 1.7 mg/dl (1.6-2.3); Total Protein,Serum 7.1 g/dl (6.3-8.2)
[2024-09-14 17:00] LABS: Anion Gap 9.5 mEq/L (5-15); Carbon Dioxide 23 mmol/L (22.0-30.0)
--- NOTE | 2024-09-14 17:12 | PC.NURSE ---
gave pt sprite, she is tolerating thus far. IVF completed & Yunior W KATELYN updated.
[2024-09-14 17:33] VITALS: BP 98/59; PULSE 78; RESP 16; TEMP 37; O2SAT 100
[2024-09-14 17:40] LABS: HIV Combo NEGATIVE (Negative)
[2024-09-14 17:48] LABS: Hepatitis C Ab Qual. W/ RFX NEGATIVE (Negative)
== END 2024-09-14 17:34 | disposition home or self-care (01) ==
PROVIDERS: Physician Assistant; Emergency Provider Emergency Medicine; PCP Nurse Practitioner
DX: R11.2 Nausea with vomiting, unspecified (principal); R63.8 Other symptoms and signs concerning food and fluid intake; R19.7 Diarrhea, unspecified; R11.10 Vomiting, unspecified
CPT/HCPCS: 80053; 83735; 85025; 86803; 87389; 87636; 96360; 99283; J7030; Q0162

== ENCOUNTER 2024-10-21 18:22 | Emergency (ER) | payer OTHER, SELFPAY ==
[2024-10-21 18:23] VITALS: BP 118/74; PULSE 110; RESP 18; TEMP 37.2; O2SAT 100; BMI 16.3
--- NOTE | 2024-10-21 18:56 | ED_ITS ---
Discharge Plan Disposition Patient Disposition: Home, Self-Care Condition: Good Prescriptions Prescriptions: New ondansetron 4 mg tablet,disintegrating 4 mg PO QID PRN (Reason: nausea and vomiting) Qty: 10 0RF No Action propranolol 40 mg tablet 40 mg PO BID Qty: 60 3RF ergocalciferol (vitamin D2) [Vitamin D2] 1,250 mcg (50,000 unit) capsule 1,250 mcg PO DAILY Patient Comments: TAKE ONE CAPSULE BY MOUTH ONCE WEEKLY ondansetron 4 mg tablet,disintegrating 4 mg PO Q6H PRN (Reason: nausea and vomiting) Qty: 10 0RF Referrals Follow up/Referrals: Jennifer Hoskins APRN [Primary Care Provider] - See instructions Activity Restrictions/Add. Instructions Additional Instructions/Restrictions: As we discussed you have a ruptured ovarian cyst. You need to follow-up with your PCP within 48 hours for recheck. If you have any new worsening or continuing symptoms follow-up sooner. Clinical Impressions Clinical Impression: Ovarian cyst rupture Instructions Patient Instructions: DI for Acute Abdominal Pain Print Language Print Language: Burkinan Discharge ED Provider: Enrique Stanton General Adult HPI <KATELYN Bauer - Last Filed: 10/21/24 20:53> General Chief complaint: Abdominal Pain Stated complaint: abdominal pain Time Seen by Provider: 10/21/24 18:56 Mode of Arrival: Ambulatory Source of Information: Patient Limitations: No Limitations Description of Symptoms (Recalled from ER Triage Doc. by RN): pt presents for evaluation of severe RLQ abd pain x 1 hour. Pt is having nausea when pain is severe. Pt still has her appendix. Pain is worse when she ambulates. History of Present Illness HPI narrative: Patient presents for evaluation of acute right lower quadrant pain. Patient states that she began having acute right lower quadrant pain earlier today and it is continued to progress. She denies inability to tolerate oral intake she has had normal bowel movements that she denies fever chills chest pain shortness of breath chills hemoptysis hematochezia melena. The pain does not radiate there are no aggravating or relieving factors. Patient has had a tubal ligation but still has her appendix and gallbladder. Related Data Home Medications ?Medication ?Instructions ?Recorded ?Confirmed ergocalciferol (vitamin D2) 1,250 1,250 mcg PO DAILY 02/21/24 06/04/24 mcg (50,000 unit) capsule (Vitamin D2) Previous Rx's ?Medication ?Instructions ?Recorded propranolol 40 mg tablet 40 mg PO BID #60 tabs 05/01/24 ondansetron 4 mg disintegrating 4 mg PO Q6H PRN nausea and 09/14/24 tablet vomiting #10 tabs ondansetron 4 mg disintegrating 4 mg PO QID PRN nausea and 10/21/24 tablet vomiting #10 tabs Allergies Allergy/AdvReac Type Severity Reaction Status Date / Time Penicillins Allergy Intermediate Rash Verified 06/04/24 09:27 [facility] <KATELYN Bauer - Last Filed: 10/21/24 20:53> [facility] Disclaimer: The information contained in this section may have been updated after the patient was seen, as this information can be updated by other users. Medical History Dyspnea delivery delivered Surgical History Previous section Social History Smoking Status: Never smoker alcohol intake: never substance use type: denies use current occupational status: unemployed and other Travel in the last 8 weeks: None Have you lived/traveled outside US in past 30 days?: No Contact w/someone who lives/traveled outside US past 30 days?: No Exposure to someone with infectious disease in past 14 days?: No Do you have a fever (greater than 100.4 F or 38 C)?: No Have you tested positive for COVID-19: No Exposed to someone with COVID-19 in past 14 days?: No Do you have a sore throat?: No Do you have a cough?: No Do you have any weakness?: No Do you have any diarrhea?: No Are you experiencing any unusual bleeding?: No Do you have any muscle aches/pain?: No Do you have any abdominal pain?: Yes Are you experiencing loss of taste or smell?: No Other Medical History Have you received the Flu Vaccine for this season: No Have you received the Pneumonia Vaccine: No <KATELYN Bauer - Last Filed: 10/21/24 20:53> ROS Obtained: Yes Systems reviewed as appropriate & no additional complaints except as documented Physical Exam <KATELYN Bauer - Last Filed: 10/21/24 20:53> General General appearance: alert and in no apparent distress Respiratory Respiratory exam: Present normal lung sounds bilaterally Cardiovascular Cardiovascular exam: Present regular rate Neurological Exam Neurological exam: Present alert and oriented X3 Medical Decision Making <KATELYN Bauer - Last Filed: 10/21/24 20:53> Medical Records Medical records reviewed: Yes I reviewed the patient's medical records. Screening: Per USPSTF and CDC recommendations, given the prevalence of disease in our region, it is our hospital?s policy to screen for HIV and viral Hepatitis for all patients aged 18 and over and those with ongoing risk factors. Eddie Inquiry Pt receiving controlled substance: No Vital Signs: 10/21/24 18:23 10/21/24 20:49 Temperature 99 F 97.9 F Temperature Source Oral Pulse Rate 89 Pulse Rate [Right] 110 H Respiratory Rate 18 20 Blood Pressure 128/78 Blood Pressure [Right Arm] 118/74 Blood Pressure Mean [Right Arm] 88 Blood Pressure Source [Right Arm] Automatic Cuff Blood Pressure Position [Right Arm] Sitting 02 Sat by Pulse Oximetry 100 Oxygen Delivery Method Room Air Room Air Lab Data Lab results reviewed: Yes I reviewed the patient's lab results. Lab Results 10/21/24 18:47: Urine Color Yellow, Urine Appearance Clear, Urine pH 6.5, Ur Specific Dorsey <= 1.005, Urine Protein Negative, Urine Glucose (UA) Negative, Urine Ketones Negative, Urine Blood Negative, Urine Nitrate Negative, Urine Bilirubin Negative, Urine Urobilinogen 0.2, Ur Leukocyte Esterase Negative, Urine WBC Occasional, Ur Squamous Epith Cells 3-5, Urine Bacteria Trace, Urine HCG, Qual Negative 10/21/24 19:30: WBC 12.6 H, RBC 4.39, Hgb 13.1, Hct 39.8, MCV 90.7, MCH 29.8, MCHC 32.9, RDW 11.9, Plt Count 341, MPV 10.1, Neut % (Auto) 80.6 H, Lymph % (Auto) 12.9, [place] % (Auto) 5.0, Eos % (Auto) 0.6, Baso % (Auto) 0.4, Neut # (Auto) 10.2 H, Lymph # (Auto) 1.6, [place] # (Auto) 0.6, Eos # (Auto) 0.1, Baso # (Auto) 0.1, Sodium 141, Potassium 3.9, Chloride 105, Carbon Dioxide 27, Anion Gap 12.9, BUN 9, Creatinine 0.70, Estimated Creat Clear 79, Estimated GFR 103, Est GFR ( Amer) 124, Glucose 83, Calcium 9.1, Magnesium 2.1, Total Bilirubin 0.7, AST 26, ALT 19, Alkaline Phosphatase 66, Total Protein 8.0, Albumin 4.9, Globulin 3.1, Albumin/Globulin Ratio 1.6, Lipase 134 10/21/24 19:30 10/21/24 19:30 Orders (Tests/Meds): ED MEDICATIONS Discontinued Medications Generic Name Dose Route Start Last Admin Trade Name Freq PRN Reason Stop Dose Admin Acetaminophen 1,000 mg 10/21/24 19:14 10/21/24 19:30 Acetaminophen 500mg Tab PO 10/21/24 19:15 1,000 mg ONCE ONE Administration Iopamidol 75 ml 10/21/24 20:15 10/21/24 20:16 Iopamidol-370 (76%);100ml Bottle IV 10/21/24 20:16 75 ml ONCE ONE Administration Ketorolac Tromethamine 15 mg 10/21/24 19:14 10/21/24 19:30 Ketorolac 30mg/Ml Vial IV 10/21/24 19:15 15 mg ONCE ONE Administration Ondansetron HCl 4 mg 10/21/24 19:14 10/21/24 19:37 Ondansetron 4mg/2ml Vial IV 10/21/24 19:15 4 mg ONCE ONE Administration Sodium Chloride 10 ml 10/21/24 20:15 10/21/24 20:16 Sodium Chloride 0.9% 10ml Syr (Rad Only) IV 11/20/24 20:14 10 ml NEEDED PRN Administration Maintain IV Site ORDERS Category Date Time Status CT abdomen pelvis w con Stat Cat Scan 10/21/24 19:14 Completed CBC w/Auto Diff [Complete Blood Count Auto Diff] Stat Lab 10/21/24 19:30 Completed CMP [Comprehensive Metabolic Panel] Stat Lab 10/21/24 19:30 Completed Lipase Stat Lab 10/21/24 19:30 Completed Magnesium Stat Lab 10/21/24 19:30 Completed Urinalysis and Microscopic Stat Lab 10/21/24 18:47 Completed Urine , HCG Qual. Stat Lab 10/21/24 18:47 Completed Medical Decision Narrative: In summary patient is a 24-year-old female who presents to the emergency department for evaluation of right lower quadrant abdominal pain. Patient is normotensive at 118/74 but tachycardic to the 110 breathing 18 times a minute satting at 100% on room air upon arrival, with a temperature of 99. Physical exam is remarkable for tenderness to palpation of the right lower quadrant however there is no rebound no guarding no rigidity bowel sounds normal active. There is no CVA tenderness to percussion. There is no suprapubic tenderness.. Differential diagnosis includes acute appendicitis versus ovarian cyst versus constipation versus urinary tract infection versus kidney stone etc. Initial workup will be conducted with hematologic labs urinalysis CT scan abdomen pelvis. Initial interventions include Tylenol and Toradol. Initial workup reviewed by me and her white count still 0.6 H&H is normal absolute neutrophil count of 10.2 the remainder of her hematologic labs are nonactionable urinalysis is bland urine is negative and my informal interpretation of her CT scan abdomen pelvis shows a ruptured ovarian cyst on the right with a small amount of free fluid in the pelvis. Upon repeat evaluation patient had significant improvement in her pain after initial intervention. Given this patient is appropriate for discharge with follow-up with her [facility] HEATER within 48 hours, a prescription for Zofran and instructions to continue taking ibuprofen as needed for discomfort. <Enrique Stanton MD - Last Filed: 10/21/24 21:52> Vital Signs: 10/21/24 18:23 10/21/24 20:49 Temperature 99 F 97.9 F Temperature Source Oral Pulse Rate 89 Pulse Rate [Right] 110 H Respiratory Rate 18 20 Blood Pressure 128/78 Blood Pressure [Right Arm] 118/74 Blood Pressure Mean [Right Arm] 88 Blood Pressure Source [Right Arm] Automatic Cuff Blood Pressure Position [Right Arm] Sitting 02 Sat by Pulse Oximetry 100 Oxygen Delivery Method Room Air Room Air Lab Data Lab Results 10/21/24 18:47: Urine Color Yellow, Urine Appearance Clear, Urine pH 6.5, Ur Specific [place] <= 1.005, Urine Protein Negative, Urine Glucose (UA) Negative, Urine Ketones Negative, Urine Blood Negative, Urine Nitrate Negative, Urine Bilirubin Negative, Urine Urobilinogen 0.2, Ur Leukocyte Esterase Negative, Urine WBC Occasional, Ur Squamous Epith Cells 3-5, Urine Bacteria Trace, Urine HCG, Qual Negative 10/21/24 19:30: WBC 12.6 H, RBC 4.39, Hgb 13.1, Hct 39.8, MCV 90.7, MCH 29.8, MCHC 32.9, RDW 11.9, Plt Count 341, MPV 10.1, Neut % (Auto) 80.6 H, Lymph % (Auto) 12.9, [place] % (Auto) 5.0, Eos % (Auto) 0.6, Baso % (Auto) 0.4, Neut # (Auto) 10.2 H, Lymph # (Auto) 1.6, [place] # (Auto) 0.6, Eos # (Auto) 0.1, Baso # (Auto) 0.1, Sodium 141, Potassium 3.9, Chloride 105, Carbon Dioxide 27, Anion Gap 12.9, BUN 9, Creatinine 0.70, Estimated Creat Clear 79, Estimated GFR 103, Est GFR ( Amer) 124, Glucose 83, Calcium 9.1, Magnesium 2.1, Total Bilirubin 0.7, AST 26, ALT 19, Alkaline Phosphatase 66, Total Protein 8.0, Albumin 4.9, Globulin 3.1, Albumin/Globulin Ratio 1.6, Lipase 134 Orders (Tests/Meds): ED MEDICATIONS Discontinued Medications Generic Name Dose Route Start Last Admin Trade Name Freq PRN Reason Stop Dose Admin Acetaminophen 1,000 mg 10/21/24 19:14 10/21/24 19:30 Acetaminophen 500mg Tab PO 10/21/24 19:15 1,000 mg ONCE ONE Administration Iopamidol 75 ml 10/21/24 20:15 10/21/24 20:16 Iopamidol-370 (76%);100ml Bottle IV 10/21/24 20:16 75 ml ONCE ONE Administration Ketorolac Tromethamine 15 mg 10/21/24 19:14 10/21/24 19:30 Ketorolac 30mg/Ml Vial IV 10/21/24 19:15 15 mg ONCE ONE Administration Ondansetron HCl 4 mg 10/21/24 19:14 10/21/24 19:37 Ondansetron 4mg/2ml Vial IV 02/18/25 19:15 4 mg ONCE ONE Administration Sodium Chloride 10 ml 10/21/24 20:15 10/21/24 20:16 Sodium Chloride 0.9% 10ml Syr (Rad Only) IV 11/20/24 20:14 10 ml NEEDED PRN Administration Maintain IV Site ORDERS Category Date Time Status CT abdomen pelvis w con Stat Cat Scan 10/21/24 19:14 Completed CBC w/Auto Diff [Complete Blood Count Auto Diff] Stat Lab 10/21/24 19:30 Completed CMP [Comprehensive Metabolic Panel] Stat Lab 10/21/24 19:30 Completed Lipase Stat Lab 10/21/24 19:30 Completed Magnesium Stat Lab 10/21/24 19:30 Completed Urinalysis and Microscopic Stat Lab 10/21/24 18:47 Completed Urine , HCG Qual. Stat Lab 10/21/24 18:47 Completed Medical Decision Narrative: In summary patient is a 24-year-old female who presents to the emergency department for evaluation of right lower quadrant abdominal pain. Patient is normotensive at 118/74 but tachycardic to the 110 breathing 18 times a minute satting at 100% on room air upon arrival, with a temperature of 99. Physical exam is remarkable for tenderness to palpation of the right lower quadrant however there is no rebound no guarding no rigidity bowel sounds normal active. There is no CVA tenderness to percussion. There is no suprapubic tenderness.. Differential diagnosis includes acute appendicitis versus ovarian cyst versus constipation versus urinary tract infection versus kidney stone etc. Initial workup will be conducted with hematologic labs urinalysis CT scan abdomen pelvis. Initial interventions include Tylenol and Toradol. Initial workup reviewed by me and her white count still 0.6 H&H is normal absolute neutrophil count of 10.2 the remainder of her hematologic labs are nonactionable urinalysis is bland urine is negative and my informal interpretation of her CT scan abdomen pelvis shows a ruptured ovarian cyst on the right with a small amount of free fluid in the pelvis. Upon repeat evaluation patient had significant improvement in her pain after initial intervention. Given this patient is appropriate for discharge with follow-up with her [facility]ET HEATER within 48 hours, a prescription for Zofran and instructions to continue taking ibuprofen as needed for discomfort. I was consulted by the BEAR, and we discussed the complexity of the problems being addressed. I approved the treatment and management plan for this patient's care in the Emergency Department, thus performing a substantive portion of the medical decision making. Enrique Stanton MD Critical Care <KATELYN Bauer - Last Filed: 10/21/24 20:53> Critical Care Time Critical Care Time: No
[2024-10-21 18:59] LABS: Microscopic, Urine URINE MICROSCOPIC (MICROSCOPIC)
--- NOTE | 2024-10-21 18:59 | PC.NURSE ---
ROUNDED ON THE PT. THE PT VOICES THAT SHE DOES NOT NEED ANYTHING AT THIS TIME. CALL LIGHT IS WITHIN REACH OF THE PT.
--- NOTE | 2024-10-21 19:14 | CT_ITS ---
PROCEDURE INFORMATION: Exam: CT Abdomen And Pelvis With Contrast Exam date and time: 10/21/2024 8:13 PM Age: 24 years old Clinical indication: Abdominal pain; Additional info: Right-sided abdominal pain TECHNIQUE: Imaging protocol: Computed tomography of the abdomen and pelvis with contrast. Radiation optimization: All CT scans at this facility use at least one of these dose optimization techniques: automated exposure control; mA and/or kV adjustment per patient size (includes targeted exams where dose is matched to clinical indication); or iterative reconstruction. Contrast material: ISOVUE; Contrast volume: 75 ml; Contrast route: IV; COMPARISON: US ABDOMEN COMPLETE 01/24/2024 9:18 AM FINDINGS: Liver: Normal. No mass. Gallbladder and biliary ducts: Normal. No calcified stones. No ductal dilation. Pancreas: Normal. No ductal dilation. Spleen: Normal. No splenomegaly. Adrenal glands: Normal. No mass. Kidneys and ureters: Normal. No hydronephrosis. Stomach and bowel: Unremarkable. No obstruction. No mucosal thickening. Appendix: No evidence of appendicitis. Intraperitoneal space: Mild amount of simple free fluid in the pelvis. Vasculature: Unremarkable. No abdominal aortic aneurysm. Lymph nodes: Unremarkable. No enlarged lymph nodes. Urinary bladder: Unremarkable as visualized. Reproductive: Ruptured right ovarian cyst. Normal-appearing uterus and left ovary. Bones/joints: Unremarkable. No acute fracture. Soft tissues: Unremarkable. IMPRESSION: Ruptured right ovarian cyst with mild simple free fluid in the pelvis.
[2024-10-21 19:26] LABS: Appearance,Urine CLEAR (Clear); Bilirubin,Urine Negative (Negative); Blood, Urine Negative (Negative); Color,Urine YELLOW (Yellow); Glucose,Urine (UA) Negative (Negative); Ketones,Urine Negative (Negative); Leukocyte Esterase,Urine Negative (Negative); Nitrate,Urine Negative (Negative); PH,Urine 6.5 (5.0-8.5); Protein,Urine Negative (Negative); Specific Gravity, Urine <= 1.005 (1.005-1.030); Urobilinogen,Urine 0.2 EU/dl (0.2)
[2024-10-21 19:27] LABS: Urine Pregnancy, HCG Qual. Negative (Negative)
[2024-10-21] MEDS: KETOROLAC 30MG/ML VIAL 15 MG IV (19:30)
[2024-10-21] MEDS: ACETAMINOPHEN 500MG TAB 1000 MG PO (19:30)
[2024-10-21] MEDS: ONDANSETRON 4MG/2ML VIAL 4 MG IV (19:37)
[2024-10-21 19:40] LABS: Basophils # 0.1 K/mm3 (0-0.2); Basophils % 0.4 % (0.1-2.0); Eosinophils # 0.1 K/mm3 (0.0-0.4); Eosinophils % 0.6 % (0.1-12.0); Hematocrit 39.8 % (37.0-47.0); Hemoglobin 13.1 g/dL (12.2-16.2); Lymphocytes # 1.6 K/mm3 (0.7-4.5); Lymphocytes % 12.9 % (10-50); Mean Corpuscular HGB Conc 32.9 g/dL (31.8-35.4); Mean Corpuscular Hemoglobin 29.8 pg (27.0-31.2); Mean Corpuscular Volume 90.7 fl (81-99); Mean Platelet Volume 10.1 fl (7.4-10.4); Monocytes # 0.6 K/mm3 (0.1-1.0); Neutrophils # 10.2 K/mm3 (1.8-7.8); Neutrophils % 80.6 % (37.0-80.0); Platelet Count 341 K/mm3 (142-424); Red Blood Count 4.39 M/mm3 (4.20-5.40); Red Cell Distribution Width 11.9 % (11.5-17.5); White Blood Count 12.6 K/mm3 (4.8-10.8)
[2024-10-21 19:47] LABS: Albumin Level 4.9 g/dl (3.5-5.0); Chloride 105 mmol/L (98-107); Potassium 3.9 mmoL/L (3.5-5.1); Sodium 141 mmol/L (136-145)
[2024-10-21 19:49] LABS: Blood Urea Nitrogen 9 mg/dl (7-17); Creatinine Clearance Estimated 79 mL/min (50-200); Estimated Glomerular Filt Rate 103 ml/min (>60); GFR (African American) 124 ML/MIN (>60)
[2024-10-21 19:50] LABS: Alanine Aminotransferase 19 U/L (12-78); Albumin/Globulin Ratio 1.6 (1.1-1.8); Alkaline Phosphatase 66 U/L (38-126); Anion Gap 12.9 mEq/L (5-15); Aspartate Amino Transferase 26 U/L (14-36); Bilirubin,Total 0.7 mg/dl (0.2-1.3); Calcium 9.1 mg/dl (8.4-10.2); Carbon Dioxide 27 mmol/L (22.0-30.0); Globulin 3.1 g/dL (1.3-3.2); Glucose 83 mg/dl (74-100); Lipase 134 U/L (23-300); Magnesium 2.1 mg/dl (1.6-2.3)
[2024-10-21] MEDS: IOPAMIDOL-370 (76%);100ML BOTTLE 75 ML IV (20:16)
[2024-10-21] MEDS: SODIUM CHLORIDE 0.9% 10ML SYR (RAD ONLY) 10 ML IV (20:16)
[2024-10-21 20:49] VITALS: BP 128/78; PULSE 89; RESP 20; TEMP 36.6; O2SAT 98
[2024-10-21 20:54] LABS: Bacteria,Urine Trace /lpf; WBC,Urine Occasional #/hpf (0-3)
== END 2024-10-21 20:50 | disposition home or self-care (01) ==
PROVIDERS: Physician Assistant; Emergency Provider Emergency Medicine; PCP Nurse Practitioner
DX: N83.291 Other ovarian cyst, right side (principal); R10.31 Right lower quadrant pain; R11.0 Nausea
CPT/HCPCS: 74177; 80053; 81001; 81025; 83690; 83735; 85025; 96374; 96375; 99285; J1885; J2405; Q9967

== ENCOUNTER 2024-10-24 19:18 | Emergency (ER) | payer OTHER, SELFPAY ==
[2024-10-24 19:22] VITALS: BP 113/70; PULSE 65; RESP 16; TEMP 37; O2SAT 97; BMI 16.0
[2024-10-24 19:33] LABS: Coronavirus 19, PCR Not Detected (NotDetected); Influenza A, PCR Not Detected (NotDetected); Influenza B, PCR Not Detected (NotDetected)
--- NOTE | 2024-10-24 19:54 | PC.NURSE ---
provider at the bedside
[2024-10-24] MEDS: IBUPROFEN 400 MG TABLET PO (20:03)
[2024-10-24] MEDS: diphenhydrAMINE 25MG CAPSULE 25 MG PO (20:03)
[2024-10-24] MEDS: PROCHLORPERAZINE MALEATE 5MG TABLET 5 MG PO (20:04)
[2024-10-24 20:15] VITALS: BP 93/48; O2SAT 99
--- NOTE | 2024-10-24 20:16 | [facility].EDGENADL ---
Discharge Plan Disposition Patient Disposition: Home, Self-Care Prescriptions Prescriptions: New prochlorperazine maleate [Compazine] 10 mg tablet 10 mg PO Q8H PRN (Reason: nausea and vomiting and headache) 7 Days Qty: 20 0RF Rx Instructions: Please take with 400 mg of ibuprofen and 25 mg of Benadryl and expect sedation No Action propranolol 40 mg tablet 40 mg PO BID Qty: 60 3RF ergocalciferol (vitamin D2) [Vitamin D2] 1,250 mcg (50,000 unit) capsule 1,250 mcg PO DAILY Patient Comments: TAKE ONE CAPSULE BY MOUTH ONCE WEEKLY ondansetron 4 mg tablet,disintegrating 4 mg PO Q6H PRN (Reason: nausea and vomiting) Qty: 10 0RF ondansetron 4 mg tablet,disintegrating 4 mg PO QID PRN (Reason: nausea and vomiting) Qty: 10 0RF Referrals Follow up/Referrals: Jennifer Hoskins APRN [Primary Care Provider] - See instructions Activity Restrictions/Add. Instructions Additional Instructions/Restrictions: No evidence of an emergent medical condition identified today. If your symptoms worsen such as worsening headache high fever or neck stiffness please return to the emergency department. Otherwise you may take your Compazine as needed with [id number] Tylenol ibuprofen and Benadryl. You may return at any point if you are concerned or if your symptoms are worsening. This is likely all associated with a viral syndrome and should be self-limiting within a few days Clinical Impressions Clinical Impression: Headache, URI (upper respiratory infection) Print Language Print Language: [place] Discharge ED Provider: Leti Kowalski General Adult HPI General Chief complaint: Headache Stated complaint: OLIVAS Time Seen by Provider: 10/24/24 19:52 Mode of Arrival: Ambulatory Source of Information: Patient and Relative Limitations: No Limitations Description of Symptoms (Recalled from ER Triage Doc. by RN): Pt presents with c/o headache that started at 11pm last night. Pt states she has tried tylenol, but still has her headache. Pt states she normally doesn't get headaches like this. Pt states she has slept all day and feels fatigued. History of Present Illness HPI narrative: Patient is a 24-year-old female presenting today with a headache. Slowly worsened since 11 PM last night. She has had 3 days of cough and sinus pressure. Though symptoms are improving. She denies any fevers she does have some photophobia. Does have a history of headaches but very infrequently nothing to this severity. Denies any significant nuchal rigidity. Of note patient was in the ER at [facility] last night for IV fluids to check electrolytes per her psychiatrist request. She has been on stimulants for 3 months trying to gain weight has been unsuccessful and she has lost about 10 pounds over the last 3 months. Labs were unremarkable last night she states. Related Data Home Medications ?Medication ?Instructions ?Recorded ?Confirmed ergocalciferol (vitamin D2) 1,250 1,250 mcg PO DAILY 02/21/24 06/04/24 mcg (50,000 unit) capsule (Vitamin D2) Previous Rx's ?Medication ?Instructions ?Recorded propranolol 40 mg tablet 40 mg PO BID #60 tabs 05/01/24 ondansetron 4 mg disintegrating 4 mg PO Q6H PRN nausea and 09/14/24 tablet vomiting #10 tabs ondansetron 4 mg disintegrating 4 mg PO QID PRN nausea and 10/21/24 tablet vomiting #10 tabs prochlorperazine maleate 10 mg 10 mg PO Q8H PRN nausea and 10/24/24 tablet (Compazine) vomiting and headache 7 days #20 tabs Allergies Allergy/AdvReac Type Severity Reaction Status Date / Time Penicillins Allergy Intermediate Rash Verified 06/04/24 09:27 [facility] Disclaimer: The information contained in this section may have been updated after the patient was seen, as this information can be updated by other users. Medical History Dyspnea delivery delivered Surgical History Previous section Social History Smoking Status: Never smoker alcohol intake: never substance use type: denies use current occupational status: unemployed and other Travel in the last 8 weeks: None Have you lived/traveled outside [place] in past 30 days?: No Contact w/someone who lives/traveled outside [place] past 30 days?: No Exposure to someone with infectious disease in past 14 days?: No Do you have a fever (greater than 100.4 F or 38 C)?: No Have you tested positive for COVID-19: No Exposed to someone with COVID-19 in past 14 days?: No Do you have a sore throat?: No Do you have a cough?: No Do you have any weakness?: No Do you have any diarrhea?: No Are you experiencing any unusual bleeding?: No Do you have any muscle aches/pain?: No Do you have any abdominal pain?: No Are you experiencing loss of taste or smell?: No Other Medical History Have you received the Flu Vaccine for this season: No Have you received the Pneumonia Vaccine: No ROS Obtained: Yes All systems reviewed & no additional complaints except as documented Physical Exam General General appearance: alert and in no apparent distress Neck Neck exam: Absent meningismus (Full range of motion) Respiratory Respiratory exam: Present normal lung sounds bilaterally Cardiovascular Cardiovascular exam: Present regular rate Neurological Exam Neurological exam: Present alert, oriented X3, CN II-XII intact and normal gait; Absent motor sensory deficit Medical Decision Making Medical Records Screening: Per USPSTF and CDC recommendations, given the prevalence of disease in our region, it is our hospital?s policy to screen for HIV and viral Hepatitis for all patients aged 18 and over and those with ongoing risk factors. Eddie Inquiry Pt receiving controlled substance: No Vital Signs: 10/24/24 19:22 10/24/24 20:15 10/24/24 20:27 Temperature 98.6 F Temperature Source Temporal Artery Scan Pulse Rate [Right] 65 Respiratory Rate 16 Blood Pressure 93/48 L 97/51 L Blood Pressure [Right Arm] 113/70 Blood Pressure Mean 60 Blood Pressure Mean [Right Arm] 84 Blood Pressure Source [Right Arm] Automatic Cuff Blood Pressure Position [Right Arm] Sitting 02 Sat by Pulse Oximetry 97 99 Oxygen Delivery Method Room Air 10/24/24 20:30 Temperature Temperature Source Pulse Rate [Right] Respiratory Rate Blood Pressure 92/45 L Blood Pressure [Right Arm] Blood Pressure Mean 56 Blood Pressure Mean [Right Arm] Blood Pressure Source [Right Arm] Blood Pressure Position [Right Arm] 02 Sat by Pulse Oximetry Oxygen Delivery Method Lab Data Lab results reviewed: Yes I reviewed the patient's lab results. Lab Results 10/24/24 19:25: SARS-CoV-2 (PCR) Not detected, Influenza A Untype (PCR) Not detected, Influenza Type B (PCR) Not detected Orders (Tests/Meds): ED MEDICATIONS Discontinued Medications Generic Name Dose Route Start Last Admin Trade Name Juancho PRN Reason Stop Dose Admin Diphenhydramine HCl 25 mg 10/24/24 19:57 10/24/24 20:03 Diphenhydramine 25mg Capsule PO 10/24/24 19:58 25 mg ONCE ONE Administration Ibuprofen 400 mg 10/24/24 19:57 10/24/24 20:03 Ibuprofen 400 Mg Tablet PO 10/24/24 19:58 400 mg ONCE ONE Administration Prochlorperazine Maleate 5 mg 10/24/24 19:57 10/24/24 20:04 Prochlorperazine Maleate 5mg Tablet PO 10/24/24 19:58 5 mg ONCE ONE Administration ORDERS Category Date Time Status Rapid PCR Covid and Flu A/B Stat Lab 10/24/24 19:25 Completed Medical Decision Narrative: 24-year-old normal vital signs well-appearing nontoxic patient presents today with cough sinus pressure that has improved as well as a headache that has slightly worsened since last night. This is not consistent with a subarachnoid hemorrhage meningitis that would be bacterial etc. It is possible this is viral meningitis but is unlikely. She has no nuchal rigidity no fever at this moment. Will not perform a lumbar puncture. Given the fact that she states this headache is out of proportion to headache she has had in the past I offered her IV fluids and migraine cocktail however she states that she would not like an IV as she had 1 last night [facility]. She asked for oral medications which I felt was reasonable. Therefore oral Compazine ibuprofen and Benadryl have been administered will reassess in an hour. Reassessment 920 patient feeling significantly better her headache is tolerable but not completely gone at this point serial neurologic exams are normal again no evidence of meningismus and not concerned about bacterial meningitis. She has been advised to return with any significant worsening of her symptoms and she was discharged improved stable condition this is most likely a viral syndrome. Critical Care Critical Care Time Critical Care Time: No
[2024-10-24 20:27] VITALS: BP 97/51
[2024-10-24 20:30] VITALS: BP 92/45
[2024-10-24 21:00] VITALS: BP 105/62; O2SAT 99
[2024-10-24 21:30] VITALS: BP 101/58; PULSE 65; RESP 20; TEMP 36.8; O2SAT 97
== END 2024-10-24 21:34 | disposition home or self-care (01) ==
PROVIDERS: Emergency Provider Student in an Organized Health Care Education/Training Program; PCP Nurse Practitioner
DX: J06.9 Acute upper respiratory infection, unspecified (principal); R51.9 Headache, unspecified; R53.83 Other fatigue; R05.9 Cough, unspecified; J34.89 Other specified disorders of nose and nasal sinuses
CPT/HCPCS: 87636; 99283